=== PATIENT | female | born 1985 | race Caucasian/White ===

== ENCOUNTER 2017-05-07 08:05 | Inpatient (IN) | payer BC ==
[2017-05-07] MEDS ORDERED: Acetaminophen TAB* 325 MG PO ONE (09:20)
[2017-05-07] MEDS ORDERED: Misoprostol TAB* 200 MCG ONE ×2 (09:26→12:35)
[2017-05-07] MEDS ORDERED: Acetaminophen TAB* 325 MG ONE (09:26)
[2017-05-07] MEDS: Misoprostol TAB* 100 MCG VAGINAL ONE (09:30)
--- NOTE | 2017-05-07 10:12 | HP ---
General Information - General Information Maternal Age: 31 Grav: 1 Para: 0 SAB: 0 IEA: 0 Estimated Due Date: 08/25/17 Determined By: LMP Gestational Age in Weeks and Days: 24 Weeks and 2 Days Maternal Blood Type and Rh: O Negative - Results this Serology/RPR Result: Non-Reactive Rubella Result: Immune HBsAg Result: Negative HIV Result: Negative GBS Culture Result: Positive Past Medical History Pertinent Past Medical History: Non-Contributory Past Medical History Comment: congenital osteochondroma, L hip Pertinent Past Surgical History: None Pertinent Family History: Non-Contributory - Antepartal Records Antepartal Records: Reviewed, Complicated by: - GBS bacteriuria. IUFD at 24 weeks Review of Systems Constitutional: Comfortable CV Complaint: No Respiratory: Shortness of Breath: No - current URI Gastrointestinal: No Nausea/Vomiting, Normal Bowel Movement Genitourinary: No Leaking Fluid Musculoskeletal: No Complaint Movement: Absent - Comments current mild headache Exam Allergies/Adverse Reactions: Allergies Sulfa (Sulfonamide Antibiotics) Allergy (Verified 05/07/17 09:34) Hives - Measurements Height: 5 ft 8 in Weight: 180 lb Weight in lbs: 180 Body Mass Index (BMI): 27.3 Pre- Weight: 164 lb Weight Gained This : 16 lbs and 0 ozs - Exam CVA: No CVA Tenderness Extremities: No Edema Heart: Normal Rhythm/Heart Sounds HEENT: No Significant Findings Lungs: Clear Bilaterally Reflexes: DTR 2+ Thyroid: No Thyromegaly Other Exam Findings: breasts: soft, no masses - Cervical Exam thick, closed - Abdominal Exam Abdomen Exam: Non-Tender, Fundal Height Consistent with Dates - Membranes Membrane Status: Intact - Ultrasound/Biophysical Profile Ultrasound Status: Not Done EFM Findings - External Monitor Findings Contractions: None Assessment/Plan - Reason for Visit Reason for Visit: IUFD at 24 wks, for misoprostol induction - Obstetrical Risk Factors Obstetrical Risk Factors: Demise - Plan Plan: Induction Plan Comment: discussed plan of care with pt/. Will do vaginal misoprostol--initial dose 200mcg placed at 930 Epidural recommended in case manual removal of placenta necessary demise panel drawn Desires genetic studies Autopsy discussed, they are considering Dr. Hemphill advised of status - Date/Time of Admission Date of Admission: 05/07/17 Time of Admission: 09:20
[2017-05-07 11:14] LABS: Hematocrit 37 % (35-47); Hemoglobin 12.8 g/dl (12.0-16.0); Mean Corpuscular HGB Conc 35 g/dl (31-36); Mean Corpuscular Hemoglobin 32 pg (27-31); Mean Corpuscular Volume 91 fL (80-97); Mean Platelet Volume 7 um3 (7.4-10.4); Platelet Count 231 10^3/ul (150-450); Red Blood Count 4.07 10^6/ul (4.0-5.4); Red Cell Distribution Width 13 % (10.5-15)
[2017-05-07 11:27] LABS: Platelet Count 200 10^3/ul (150-450)
[2017-05-07 11:48] LABS: INR 0.86 (0.77-1.02)
[2017-05-07 11:52] LABS: EGFR Non-African American 103.8 (>60)
[2017-05-07 12:11] LABS: Schistocytes ABSENT
[2017-05-07 12:11] LABS: ABS Basophils 0 10^3/ul (0-0.2); ABS Eosinophils 0.1 10^3/ul (0-0.6); ABS Lymphocytes 1.5 10^3/ul (1.0-4.8); ABS Monocytes 0.4 10^3/ul (0-0.8); ABS Nucleated RBC 0 10^3/ul; Eosinophil % 0.6 % (0-6); Lymphocyte % 13.3 % (25-47); Nucleated Red Blood Cells % 0
[2017-05-07] MEDS ORDERED: Misoprostol TAB* 200 MCG VAGINAL ONE ×2 (12:31→15:41)
[2017-05-07] MEDS ORDERED: Ibuprofen TAB* 600 MG PO PRN (13:40)
[2017-05-07] MEDS: Acetaminophen TAB* 325 MG PO PRN (14:04)
[2017-05-08] MEDS ORDERED: Misoprostol TAB* 200 MCG VAGINAL ONE ×3 (01:10→13:31)
[2017-05-08] MEDS ORDERED: Misoprostol TAB* 200 MCG ONE (01:19)
[2017-05-08] MEDS: Misoprostol TAB* 100 MCG VAGINAL ONE (13:40)
[2017-05-08] MEDS ORDERED: Nalbuphine* 20 MG/ML 1 ML VIAL IV PRN (16:43)
[2017-05-08] MEDS ORDERED: Promethazine INJ(RESTRICTED)* 25 MG/ML 1 ML VIAL IV PRN (16:44)
[2017-05-08] MEDS: Oxytocin in LR* 20 UNITS/1,000 ML BAG IVPB SCH (18:00)
[2017-05-08] MEDS ORDERED: Ondansetron INJ* 2 MG/ML VIAL ONE (22:04)
[2017-05-08] MEDS: Acetaminophen TAB* 325 MG PO PRN (23:17)
[2017-05-09] MEDS: Oxytocin in LR* 20 UNITS/1,000 ML BAG IVPB SCH (03:25)
[2017-05-09] MEDS ORDERED: Nalbuphine* 20 MG/ML 1 ML VIAL IV PRN (04:10)
[2017-05-09] MEDS ORDERED: Promethazine INJ(RESTRICTED)* 25 MG/ML 1 ML VIAL IV PRN (04:12)
[2017-05-09] MEDS ORDERED: Promethazine INJ(RESTRICTED)* 25 MG/ML 1 ML VIAL ONE (04:13)
[2017-05-09] MEDS ORDERED: Witch Hazel PAD* JAR TOPICAL PRN (06:59)
[2017-05-09] MEDS ORDERED: Acetaminophen TAB* 325 MG PO PRN (06:59)
[2017-05-09] MEDS ORDERED: RHO D Immune Globulin (HUMAN)* 300 MCG = 1,500 I.U. INJ IM ONE (06:59)
[2017-05-09] MEDS ORDERED: Ibuprofen TAB* 600 MG PO PRN (06:59)
[2017-05-09] MEDS ORDERED: fentaNYL* 50 MCG/ML 2 ML VIAL (100 MCG VIAL) ONE (09:02)
[2017-05-09] MEDS ORDERED: Midazolam* 1 MG/ML 10 ML VIAL (10 MG) ONE (09:03)
[2017-05-09] MEDS ORDERED: ceFAZolin 2 GM PREMIX (*) 2 GM/50 ML BAG IVPB ONE ×2 (09:04→09:07)
[2017-05-09] MEDS ORDERED: Naloxone* 0.4 MG/ML 1 ML VIAL IV PRN (10:12)
[2017-05-09] MEDS ORDERED: Ondansetron INJ* 2 MG/ML VIAL IV PRN (10:12)
[2017-05-09] MEDS ORDERED: fentaNYL* 50 MCG/ML 2 ML VIAL (100 MCG VIAL) IV PRN (10:12)
[2017-05-09] MEDS: Docusate CAP* 100 MG PO SCH (14:38)
[2017-05-09 16:23] VITALS: BP 109/67
[2017-05-10] MEDS ORDERED: Ferrous Gluconate TAB* 324 MG TAB PO SCH (09:00)
--- NOTE | 2017-05-10 17:16 | OP ---
DATE OF OPERATION: 05/09/17 - ROOM #113 DATE OF : 83 SURGEON: Nestor Meier MD ANESTHESIOLOGIST: Dr. Montero. ANESTHESIA: Spinal. PRE-OP DIAGNOSIS: Retained placenta after 24-week vaginal delivery of demise. POST-OP DIAGNOSIS: Retained placenta after 24-week vaginal delivery of demise. OPERATIVE PROCEDURE: Manual extraction of placenta with ultrasound. MATERIALS TO LAB: Placenta for pathology and chromosomal analysis. ESTIMATED BLOOD LOSS: 150 cc. URINE OUTPUT: 200 cc. IV FLUIDS: 900 cc lactated Ringer's. INDICATIONS: This patient is a 31-year-old 1, diagnosed with a 24-week intrauterine demise earlier this week. The cause of the is currently unknown. The patient started induction of labor on Saturday, and on morning at about 5:30 a.m., she had vaginal delivery of the fetus. The placenta did not deliver rapidly and, due to the thin fragile cord, the placenta was allowed to stay in place to try to deliver spontaneously. After a couple of hours, the placenta still had not delivered, so IV Pitocin was added. In combination with some gentle traction, the placenta was brought down into the dilated cervix, but at that point the cord avulsed and the patient could not tolerate further manipulation of the placenta. Fortunately, the patient was not having significant bleeding at that point. She was then counseled for a manual extraction of the placenta with spinal analgesia. The patient agreed and consent was signed. FINDINGS: The patient was brought to the operating room and the majority of the placenta was already in the lower uterus and vagina. Once this was removed , there was still a moderate amount of retained placenta inside the cavity of the uterus, which was removed manually. Ultrasound was performed in the operating room and confirmed that the uterine cavity was then emptied. COMPLICATIONS: None. DESCRIPTION OF PROCEDURE: The risks, benefits, and alternatives were described to the patient and informed consent was obtained. The patient was taken to the operating room with IV running where spinal anesthesia was induced and found to be adequate. The patient was prepped and draped in the normal sterile fashion in the high lithotomy position and Alpesh stirrups. A time-out was performed. The placenta was easily palpable in the patient's vagina and lower uterus. The placenta was grasped and with gentle traction, the placenta membranes delivered without difficulty. At that time, the uterine cavity was well palpated and several pieces of placenta were noted to be adherent on the anterior aspect of the uterine cavity. With 2 to 3 passes, these were able to be removed with digital manipulation and extraction. Once the uterine was felt to be smooth, an abdominal ultrasound was performed in the operating room and the uterine cavity appeared to be completely empty. Of note, a Costello catheter was placed during the procedure. At that time, the bleeding was minimal and there was no visible trauma to the perineum or vagina. The patient was returned to the supine position and the procedure was completed. The patient tolerated the procedure well. Sponge, lap , and needle counts were correct x2. [id number]/[facility] #: [id number] MTDD
== END 2017-05-09 20:30 | disposition home or self-care (01) | DRG 541 ==
LOC: MCHOBOUT 08:05 → MCHOB 09:23
PROVIDERS: ADMIT Midwife; ATTEND Obstetrics & Gynecology
PROC: 10E0XZZ Delivery of Products of Conception, External Approach (ICD-10-PCS; 2017-05-09)
PROC: 4A1HXCZ Monitoring of Products of Conception, Cardiac Rate, External Approach (ICD-10-PCS; 2017-05-09)
PROC: 0U7C7ZZ Dilation of Cervix, Via Natural or Artificial Opening (ICD-10-PCS; 2017-05-09)
PROC: 10D17Z9 Manual Extraction of Products of Conception, Retained, Via Natural or Artificial Opening (ICD-10-PCS; 2017-05-09)
PROC: 3E0P7VZ Introduction of Hormone into Female Reproductive, Via Natural or Artificial Opening (ICD-10-PCS; principal; 2017-05-09 09:22)
DX: O36.4XX0 Maternal care for intrauterine death, not applicable or unspecified (principal); Z37.1 Single stillbirth; O73.0 Retained placenta without hemorrhage; Z3A.24 24 weeks gestation of pregnancy; Z88.2 Allergy status to sulfonamides; Z88.0 Allergy status to penicillin; O99.824 Streptococcus B carrier state complicating childbirth
CPT/HCPCS: 36415; 80048; 80307; 83030; 85025; 85049; 85362; 85384; 85610; 85613; 85730; 86038; 86200; 86644; 86695; 86696; 86747; 86762; 86777; 86778; 86850; 86900; 86901; 87070; 87073; 87076; 87077; 87184; 87185; 87186; 87205; 87640; 87641; 88233; 88291; 88305; A9270-GY; J0690; J2250; J2300; J2405; J2550; J2790; J3010; S0191

== ENCOUNTER 2018-05-03 20:00 | Inpatient (IN) | payer BC ==
[2018-05-03] MEDS ORDERED: Buffered Lidocaine 1% SYRIN* 1 ML/SYRINGE INTRADERM ONE (21:29)
[2018-05-03] MEDS ORDERED: Lactated Ringers 1000 ML Bag* 1,000 ML IV ONE (21:29)
--- NOTE | 2018-05-03 21:29 | HP ---
General Information - Reason for Visit Cervical ripening - General Information Maternal Age: 32 Grav: 2 Para: 1 SAB: 0 IEA: 0 Estimated Due Date: 05/11/18 Determined By: LMP Maternal Blood Type and Rh: O Negative - Results this Serology/RPR Result: Non-Reactive Rubella Result: Immune HBsAg Result: Negative HIV Result: Negative GBS Culture Result: Positive Past Medical History Delivery History: See Records Pertinent Past Medical History: See Records Pertinent Past Surgical History: See Records Pertinent Family History: See Records - Antepartal Records Antepartal Records: Reviewed, Complicated by: - 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 Review of Systems Constitutional: Comfortable CV Complaint: No Respiratory: Shortness of Breath: No Gastrointestinal: No Nausea/Vomiting Genitourinary: No Dysuria, No Bleeding, No Leaking Fluid Musculoskeletal: No Complaint Neurological: No Headache Movement: Normal Exam Allergies/Adverse Reactions: Allergies Penicillins Allergy (Verified 05/03/18 20:42) Rash Sulfa (Sulfonamide Antibiotics) Allergy (Verified 05/03/18 20:42) Hives T;98.8 BP: 125/90 RR: 16 P 81 - Measurements Height: 5 ft 8 in Weight: 200 lb Weight in lbs: [id number] Body Mass Index (BMI): 30.4 Pre- Weight: 164 lb Weight Gained This : 36 lbs and 0 ozs - Exam Breast: Breast Exam Deferred CVA: No CVA Tenderness Extremities: No Edema Heart: Normal Rhythm/Heart Sounds HEENT: No Significant Findings Lungs: Clear Bilaterally - Abdominal Exam Abdomen Exam: Non-Tender - Ultrasound/Biophysical Profile Ultrasound Status: Not Done Targeted Exam Findings Cervical Exam: 2cm Effacement: Thick Station: -2 Presenting Part: Vertex Membrane Status: Intact EFM Findings - External Monitor Findings Baseline Heart Rate: 140 External Monitor Findings: Accelerations Present, No Pattern of Variable or Late Decelerations, Variability Moderate Contractions: None Assessment/Plan - Assessment Pt 32 at 38 6/7 weeks for cervical ripening and plan on induction at 39 0/7 weeks. 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 - Obstetrical Risk Factors Obstetrical Risk Factors: GBS Positive - Plan Plan: Cervical Ripening - plan on indcuiton after cervical ripening. Pt GBS positive and will treat with cephalosporins for prophylaxsis.
[2018-05-03] MEDS ORDERED: Lactated Ringers 1000 ML Bag* 1,000 ML IV SCH (22:00)
[2018-05-03] MEDS ORDERED: Dinoprostone* 10 MG VAG.SUPP VAGINAL ONE (22:30)
[2018-05-03] MEDS ORDERED: Heparin VIAL(*) 5000 UNITS/ML VIAL (FIVE THOUSAND) SUBCUT ONE (23:51)
[2018-05-04] MEDS ORDERED: ceFAZolin VIAL(*) 1 GM in NS 0.9% 50 ML* 50 ML IVPB SCH (03:00)
[2018-05-04] MEDS ORDERED: Dinoprostone* 10 MG VAG.SUPP VAGINAL ONE (11:50)
[2018-05-04] MEDS: ceFAZolin 1 GM in Dextrose (*) 1 GM/50 ML BAG IVPB SCH ×2 (12:50→13:31)
[2018-05-04 13:19] LABS: Hematocrit 36 % (33-41); Mean Corpuscular HGB Conc 34 g/dL (31-36); Mean Corpuscular Hemoglobin 31 pg (27-31); Mean Corpuscular Volume 90 fL (80-97); Mean Platelet Volume 7.7 fL (7.4-10.4); Platelet Count 199 10^3/uL (150-450); Red Blood Count 3.93 10^6 /uL (3.70-4.87); Red Cell Distribution Width 14 % (10.5-15); White Blood Count 12.9 10^3/uL (3.5-10.8)
[2018-05-04 13:28] LABS: Activated Partial Thrombo Time 25.1 seconds (26.0-36.3); EGFR African American 107.7 (>60); INR 0.88 (0.77-1.02)
[2018-05-04 13:44] LABS: ABS Basophils 0 10^3/ul (0-0.2); ABS Eosinophils 0.1 10^3/ul (0-0.6); ABS Lymphocytes 1.8 10^3/ul (1.0-4.8); ABS Monocytes 0.8 10^3/ul (0-0.8); ABS Neutrophils 10.1 10^3/ul (1.5-7.7); ABS Nucleated RBC 0 10^3/ul; Eosinophil % 0.8 %; Lymphocyte % 14.3 %; Nucleated Red Blood Cells % 0
[2018-05-04] MEDS ORDERED: ceFAZolin 1 GM in Dextrose (*) 1 GM/50 ML BAG IVPB SCH (21:00)
[2018-05-05] MEDS ORDERED: Oxytocin in LR* 20 UNITS/1,000 ML BAG IVPB SCH ×2 (01:00→22:00)
[2018-05-05] MEDS: ceFAZolin 1 GM in Dextrose (*) 1 GM/50 ML BAG IVPB SCH ×2 (05:02→12:58)
[2018-05-05] MEDS ORDERED: OBEPIDURAL* 250 ML EPIDURAL ONE (14:49)
[2018-05-05] MEDS ORDERED: Sodium Citrate/Citric Acid* 15 ML UDC PO PRN (15:34)
[2018-05-05] MEDS ORDERED: Famotidine TAB* 20 MG PO PRN (15:34)
[2018-05-05] MEDS ORDERED: Phenylephrine 40 MCG/ML SYRINGE IV PUSH PRN (15:34)
[2018-05-05] MEDS ORDERED: Lactated Ringers 1000 ML Bag* 1,000 ML IV ONE (15:34)
[2018-05-05] MEDS ORDERED: OBEPIDURAL* 250 ML EPIDURAL SCH (16:00)
[2018-05-05] MEDS ORDERED: Lactated Ringers 1000 ML Bag* 1,000 ML IV SCH ×2 (16:00→22:00)
[2018-05-05] MEDS ORDERED: Ferrous Gluconate TAB* 324 MG TAB PO SCH (21:00)
[2018-05-05] MEDS ORDERED: fentaNYL* 50 MCG/ML 2 ML VIAL (100 MCG VIAL) ONE (21:05)
[2018-05-05] MEDS ORDERED: KETAMINE HCL* 50 MG/ML 10 ML VIAL ONE (21:06)
[2018-05-05] MEDS ORDERED: Midazolam* 1 MG/ML 5 ML VIAL (5 MG) ONE (21:06)
[2018-05-05] MEDS ORDERED: Morphine PF AMP (0.5MG/ML)* 5 MG/10 ML AMP ONE (21:06)
[2018-05-05] MEDS ORDERED: Acetaminophen TAB* 325 MG PO PRN (21:11)
[2018-05-05] MEDS ORDERED: Ibuprofen TAB* 600 MG PO PRN (21:11)
[2018-05-05] MEDS ORDERED: Glycerin ADULT SUPP PR PRN (21:11)
[2018-05-05] MEDS ORDERED: RHO D Immune Globulin (HUMAN)* 300 MCG = 1,500 I.U. INJ IM ONE (21:11)
[2018-05-05] MEDS ORDERED: Dibucaine 1% 28.35 GM TUBE PR PRN (21:11)
[2018-05-05] MEDS ORDERED: Witch Hazel PAD* JAR TOPICAL PRN (21:11)
[2018-05-05] MEDS ORDERED: ceFOXitin 2 GM IVPREMIX* 2 GM/50 ML BAG ONE (21:27)
[2018-05-05] MEDS ORDERED: Heparin VIAL(*) 5000 UNITS/ML VIAL (FIVE THOUSAND) SUBCUT SCH (22:00)
[2018-05-05] MEDS ORDERED: Nalbuphine* 10 MG/ML 1 ML VIAL IV PRN (22:02)
[2018-05-05] MEDS ORDERED: Ondansetron INJ* 2 MG/ML VIAL IV PRN (22:02)
[2018-05-05] MEDS ORDERED: DiMENhydriNATE IV* 50 MG/ML VIAL IV PUSH PRN (22:02)
[2018-05-05] MEDS ORDERED: Ketorolac INJ* 30 MG/ML 1 ML VIAL IV PRN (22:02)
[2018-05-05] MEDS ORDERED: Naloxone* 0.4 MG/ML 1 ML VIAL IV PRN ×2 (22:02→22:05)
[2018-05-05] MEDS ORDERED: Naloxone* 2 MG in NS 0.9% 250 ML* 250 ML IV PRN (22:02)
[2018-05-05] MEDS ORDERED: PROCHLORPERAZINE INJ 5 MG/ML 2 ML VIAL IV PRN (22:02)
[2018-05-05] MEDS ORDERED: Scopolamine 1.5 mg* PATCH TRANSDERM PRN (22:02)
[2018-05-05] MEDS ORDERED: oxyCODONE/Acetamin 5/325 MG* TAB PO PRN (22:02)
[2018-05-05] MEDS ORDERED: Scopolamine 1.5 mg* PATCH ONE (22:30)
[2018-05-05] MEDS ORDERED: Lidocaine 2% EPI 1:200000 MPF*10-20 ML VIAL ONE (22:30)
[2018-05-05] MEDS ORDERED: Lidocaine 2% PF* 10 ML AMP ONE (22:30)
[2018-05-05] MEDS ORDERED: Ketorolac INJ* 30 MG/ML 1 ML VIAL ONE (22:31)
[2018-05-05] MEDS ORDERED: Phenylephrine 40 MCG/ML SYRINGE ONE (22:31)
[2018-05-05] MEDS ORDERED: EPHEDrine (Pressors)* 50 MG/ML VIAL ONE (22:31)
[2018-05-05] MEDS ORDERED: Phenylephrine 10 MG/ML VIAL* 1 ML VIAL ONE (22:31)
[2018-05-05] MEDS ORDERED: Ondansetron INJ* 2 MG/ML VIAL ONE (22:31)
[2018-05-05] MEDS ORDERED: Dexamethasone IV* 4 MG/ML 1 ML (4 MG) ONE (22:31)
--- NOTE | 2018-05-06 00:13 | OP ---
DATE OF OPERATION: 05/05/18 - ROOM #103 DATE OF : 83 SURGEON: Enedelia Sabillon MD. CELL OPERATION SUPERVISOR: Dr. Meier. PRE-OP DIAGNOSES: Intrauterine 39 and 1/7 weeks, arrest disorder, and antiphospholipid antibody syndrome. POST-OP DIAGNOSES: Intrauterine 39 and 1/7 weeks, arrest disorder, and antiphospholipid antibody syndrome. Delivered. OPERATIVE PROCEDURE: Primary low-transverse section. ESTIMATED BLOOD LOSS: 800 cc. URINE OUTPUT: 100 cc of clear yellow urine. FLUIDS: 1800 cc of crystalloid. FINDINGS: Revealed a vertex male infant with Apgars 9 at 1 minute and 9 at 5 minutes. Weight 7 pounds 15 ounces. No nuchal cord. No meconium. Placenta manually extracted. 3-vessel cord intact. Uterine cavity explored, noted to be free of any membranes or placental tissue. Normal-appearing tubes and ovaries bilaterally. Small left paratubal cyst sent for pathology. COMPLICATIONS: None apparent. DISPOSITION: Stable to recovery room. DESCRIPTION OF PROCEDURE: The patient was placed in dorsal lithotomy position. The abdomen was prepped and draped in sterile standard fashion. The patient was identified with universal protocol for correct procedure, position, and patient. After testing for appropriate level of anesthesia, incision was made 2 fingerbreadths above the pubic symphysis with a scalpel. This was carried down through to the fascia. Fascia was scored in the midline with a scalpel, and the incision was extended laterally and superiorly using curved Cowan scissors. Rectus was sharply and bluntly from the rectus muscle with blunt and sharp dissection. Linea alba was incised with Cowan scissors. The peritoneum was then entered bluntly. The peritoneal incision was extended bluntly. Bladder blade was inserted. Lower uterine segment was identified, tented up with an Allis. An incision was made with a scalpel. This was carried down through to membranes. Fluid was noted to be clear. The incision was extended laterally and superiorly using bandage scissors. The was found to be ROT. Head was delivered, anterior posterior shoulder delivered. Cord was allowed to pulse for a minute. Baby was crying and vigorous in the operative field. Cord was clamped and then cut and then infant was handed off to waiting mink farmer, Dr. Garrison. Appropriate cord blood was obtained. Placenta was then manually delivered and extracted. The uterus was exteriorized. The uterine cavity was explored and noted to be free of any placental tissue or membranes. The uterus was wrapped in warm moist laparotomy sponge. The hysterotomy site was clamped with broad Allis, and the incision was then reapproximated using 0 Vicryl running locked first layer and running imbricated 0 Vicryl second layer. Hemostasis was noted. There was a small paratubal cyst on the left, clamped with Corinne and excised with Metzenbaum and Bovie coagulated to base. Noted to be hemostatic. The uterus was returned intraabdominally. Colic gutters were lavaged. Hemostasis was assured at the hysterotomy site. The peritoneum was then clamped with Corinne and the peritoneum was then reapproximated using 3-0 Vicryl in a running fashion. Subfacial area was lavaged. Hemostasis assured with Bovie coagulation and the fascia was then reapproximated using 0 Vicryl x2 in a running fashion. Subcu was lavaged, hemostasis assured, and subcuticular fat stitch was placed using 3- 0 Vicryl in an interrupted fashion. The skin was then reapproximated using 4-0 Monocryl in a subcuticular fashion. Mastisol and Steri-Strips were applied. All sponge, instrument, and blade counts were correct throughout the case. The patient tolerated the procedure well and went to recovery room in stable condition. [id number]/[facility] #: [id number] ALICIA
[2018-05-06] MEDS ORDERED: Phenylephrine 40 MCG/ML SYRINGE ONE (06:57)
[2018-05-06] MEDS ORDERED: Heparin VIAL(*) 5000 UNITS/ML VIAL (FIVE THOUSAND) SUBCUT SCH (08:00)
[2018-05-06 08:28] LABS: Hematocrit 30 % (33-41); Hemoglobin 10.1 g/dL (12.0-16.0); Mean Corpuscular HGB Conc 34 g/dL (31-36); Mean Corpuscular Hemoglobin 31 pg (27-31); Mean Corpuscular Volume 91 fL (80-97); Mean Platelet Volume 7.8 fL (7.4-10.4); Platelet Count 195 10^3/uL (150-450); Red Blood Count 3.29 10^6 /uL (3.70-4.87); Red Cell Distribution Width 14 % (10.5-15)
[2018-05-06] MEDS: Simethicone TAB* 80 MG TAB.CHEW PO SCH ×4 (08:44→21:09)
[2018-05-06] MEDS: Docusate CAP* 100 MG PO SCH ×3 (08:44→21:08)
[2018-05-06] MEDS: Prenatal Vitamin TAB PO SCH (08:44)
[2018-05-06 09:27] LABS: ABS Basophils 0 10^3/ul (0-0.2); ABS Eosinophils 0 10^3/ul (0-0.6); ABS Monocytes 0.8 10^3/ul (0-0.8); ABS Neutrophils 21.2 10^3/ul (1.5-7.7); ABS Nucleated RBC 0 10^3/ul; Eosinophil % 0 %; Lymphocyte % 4.4 %; Nucleated Red Blood Cells % 0
[2018-05-06] MEDS ORDERED: oxyCODONE/Acetamin 5/325 MG* TAB PO PRN (14:00)
[2018-05-06] MEDS: Ibuprofen TAB* 600 MG PO PRN ×2 (14:45→21:08)
[2018-05-06] MEDS: Heparin VIAL(*) 5000 UNITS/ML VIAL (FIVE THOUSAND) SUBCUT SCH (21:07)
[2018-05-07] MEDS: Ibuprofen TAB* 600 MG PO PRN ×2 (05:45→12:00)
[2018-05-07] MEDS: Acetaminophen TAB* 325 MG PO PRN ×3 (05:45→14:45)
[2018-05-07] MEDS: Heparin VIAL(*) 5000 UNITS/ML VIAL (FIVE THOUSAND) SUBCUT SCH (09:02)
[2018-05-07] MEDS: Prenatal Vitamin TAB PO SCH (09:02)
[2018-05-07] MEDS: Docusate CAP* 100 MG PO SCH ×3 (09:02→21:06)
[2018-05-07] MEDS: Simethicone TAB* 80 MG TAB.CHEW PO SCH ×4 (09:02→21:06)
[2018-05-07] MEDS ORDERED: Enoxaparin(*) 40 MG/0.4 ML SYR SUBCUT SCH ×2 (12:00→21:00)
[2018-05-07] MEDS: oxyCODONE/Acetamin 5/325 MG* TAB PO PRN ×3 (18:28→23:04)
[2018-05-07 20:08] VITALS: BP 131/73
[2018-05-08] MEDS: Ibuprofen TAB* 600 MG PO PRN ×2 (01:07→08:33)
[2018-05-08] MEDS: oxyCODONE/Acetamin 5/325 MG* TAB PO PRN ×2 (04:03→08:33)
[2018-05-08] MEDS: Prenatal Vitamin TAB PO SCH (08:33)
[2018-05-08] MEDS: Simethicone TAB* 80 MG TAB.CHEW PO SCH (08:34)
[2018-05-08] MEDS: Docusate CAP* 100 MG PO SCH (08:34)
--- NOTE | 2018-05-08 08:53 | PTEDU ---
Patient Name: LEELA YODER LEELA YODER selected video: Follow Me Mum: [employer] to view on 2018 at 8:52:49 AM from [id number]
[2018-05-08] MEDS: Acetaminophen TAB* 325 MG PO PRN (12:55)
[2018-05-08] MEDS ORDERED: Scopolamine PATCH Remove* 1 NOTE MISC PATCH OFF ONE (22:03)
== END 2018-05-08 14:19 | disposition home or self-care (01) | DRG 540 ==
LOC: MCHOBOUT 20:00 → MCHOB 21:43
PROVIDERS: ADMIT Obstetrics & Gynecology; ATTEND Obstetrics & Gynecology
PROC: 3E0P7VZ Introduction of Hormone into Female Reproductive, Via Natural or Artificial Opening (ICD-10-PCS; principal; 2018-05-03)
PROC: 4A1HXCZ Monitoring of Products of Conception, Cardiac Rate, External Approach (ICD-10-PCS; 2018-05-03)
PROC: 10D00Z1 Extraction of Products of Conception, Low, Open Approach (ICD-10-PCS; 2018-05-05)
DX: O99.12 Other diseases of the blood and blood-forming organs and certain disorders involving the immune mechanism complicating childbirth (principal); D68.61 Antiphospholipid syndrome; O99.824 Streptococcus B carrier state complicating childbirth; O62.1 Secondary uterine inertia; O34.83 Maternal care for other abnormalities of pelvic organs, third trimester; N83.202 Unspecified ovarian cyst, left side; Z3A.39 39 weeks gestation of pregnancy; Z37.0 Single live birth; Z88.0 Allergy status to penicillin; Z88.2 Allergy status to sulfonamides; Z67.41 Type O blood, Rh negative
CPT/HCPCS: 36415; 59200; 82565; 84520; 85025; 85610; 85730; 86850; 86870; 86880; 86900; 86901; 88304; A9270-GY; J0690; J0694; J1100; J1644; J1650; J1885; J2001; J2250; J2405; J3010

== ENCOUNTER 2018-12-12 13:33 | Emergency (ER) | payer BC ==
[2018-12-12 14:55] VITALS: BP 112/71
--- NOTE | 2018-12-12 15:29 | UC ---
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 She denies any numbness or tingling in her extremities and denies any saddle anesthesia. - History of Current Complaint Chief Complaint: UCBackPain Stated Complaint: BACK PAIN Time Seen by Provider: 12/12/18 15:15 Hx Obtained From: Patient Hx Last Menstrual Period: 11/22/18 ?: No Onset/Duration: Sudden Onset Timing: Intermittent Severity Initially: Mild Severity Currently: Mild Pain Intensity: 1 Character: Dull, Aching Aggravating Factor(s): Movement, Lifting, Bending Alleviating Factor(s): Rest Associated Signs And Symptoms: Positive: Negative. Negative: Weakness, Numbness , Tingling, Abdominal Pain, Flank Pain, Bladder Incontinence, Bowel Incontinence , Pain with Weight Bearing - Allergies/Home Medications Allergies/Adverse Reactions: Allergies Allergy/AdvReac Type Severity Reaction Status Date / Time Penicillins Allergy Rash Verified 12/12/18 14:55 Sulfa (Sulfonamide Allergy Hives Verified 12/12/18 14:55 Antibiotics) Home Medications: Home Medications Ibuprofen TAB* [Motrin TAB* 800 MG] 800 mg PO Q6HR 12/12/18 [History Confirmed 12/12/18] PMH/Surg Hx/FS Hx/Imm Hx Previously Healthy: Yes - Surgical History Surgical History: None Surgery Procedure, Year, and Place: c section - Family History Known Family History: Positive: Non-Contributory - Social History Alcohol Use: Occasionally Alcohol Amount: stopped with Substance Use Type: None Smoking Status (MU): Never Smoked Tobacco - Immunization History Most Recent Influenza Vaccination: continues to decline at this time Most Recent Pneumonia Vaccination: none Review of Systems All Other Systems Reviewed And Are Negative: Yes Musculoskeletal: Positive: Other: - Mild pain lower back strain mostly with moving. Is Patient Immunocompromised?: No Physical Exam Triage Information Reviewed: Yes Appearance: Well-Appearing, No Pain Distress, Well-Nourished Vital Signs: Initial Vital Signs Temp 97.5 F 12/12/18 14:49 Pulse 68 12/12/18 14:49 Resp 16 12/12/18 14:49 BP 112/71 12/12/18 14:49 Pulse Ox 100 12/12/18 14:49 Vital Signs Reviewed: Yes Respiratory: Positive: Lungs clear, Normal breath sounds, No respiratory distress, No accessory muscle use Cardiovascular: Positive: RRR, No Murmur, Pulses Normal, Brisk Capillary Refill Abdomen Description: Positive: Nontender, No Organomegaly, Soft. Negative: CVA Tenderness (R), CVA Tenderness (L), Distended, Guarding, Hepatomegaly, Splenomegaly Bowel Sounds: Positive: Present Musculoskeletal: Positive: Strength Intact, ROM Intact, No Edema, Other: - Very minimal pain on palpation to the right left paraspinal muscle area. No bruising. Negative straight leg raise. The peripheral pulses neuro sensation and capillary refill. Full range of motion. Ambulates without difficulty. Good leg Strength against resistance Neurological: Positive: Alert, Muscle Tone Normal Psychological: Positive: Normal Response To Family Skin Exam: Normal Back Pain Course/Dx - Course Course Of Treatment: The patient refused a muscle relaxant. She is going to take today and the weekend off and apply ice or heat to the area which ever feels good. She can take Tylenol for pain. She is to follow-up with her primary care provider if no improvement in 3 or 4 days. She states she is off work from [employer] until of next week. - Differential Dx/Diagnosis Provider Diagnosis: Low back strain Discharge ED - Sign-Out/Discharge Documenting (check all that apply): Patient Departure All imaging exams completed and their final reports reviewed: No Studies - Discharge Plan Condition: Good Disposition: HOME Patient Education Materials: Low Back Strain (ED) Forms: *Work Release Referrals: [facility] [Outside] No Primary Care Phys,NOPCP [Primary Care Provider] - Additional Instructions: May apply heat or ice to the sore area. Continue your pain medications as directed. Avoid movements that cause pain. Avoid lifting, twisting, pushing, pulling, bending. Follow-up with your primary care provider or [facility] next week if no improvement. - Billing Disposition and Condition Condition: GOOD Disposition: Home - Attestation Statements Provider Attestation: Per institutional requirements, I have reviewed the chart, however, I was not consulted specifically or made aware of this patient by the midlevel provider. I did not personally evaluate, interact with , or disposition this patient.
== END 2018-12-12 15:34 | disposition home or self-care (01) ==
LOC: UCEAST 13:33
DX: S39.012A Strain of muscle, fascia and tendon of lower back, initial encounter (principal); Z88.0 Allergy status to penicillin; Z88.2 Allergy status to sulfonamides; X58.XXXA Exposure to other specified factors, initial encounter; Y92.9 Unspecified place or not applicable
CPT/HCPCS: 99211; G0463

== ENCOUNTER 2023-02-27 07:45 | Inpatient (IN) ==
[2023-02-28] MEDS ORDERED: Buffered Lidocaine 1% SYRIN 1 ml INTRADERM ONE (14:05)
[2023-02-28] MEDS ORDERED: Naloxone 0.4 mg VIAL 0.4 mg/ml 1 ml VIAL IV PUSH PRN (14:05)
[2023-02-28] MEDS ORDERED: Sodium Citrate/Citric Acid LIQ 15 ML UDC PO ONE (14:05)
[2023-02-28] MEDS ORDERED: Ondansetron 4 mg VIAL 2 MG/ML 2 ml VIAL IV PRN (14:05)
[2023-02-28] MEDS ORDERED: Acetaminophen IV 1 GM/100ML 1,000 MG/100 ML BAG IV PRN (14:05)
[2023-02-28] MEDS ORDERED: Metoclopramide 5 MG/ML VIAL (10 mg) IV PRN (14:05)
[2023-02-28] MEDS ORDERED: Lactated Ringers 1000 ml BAG 1,000 ML IV SCH (15:00)
[2023-03-01] MEDS ORDERED: ceFOXitin 2 GM IVPREMIX 2 GM/50 ML BAG IVPB ONE (06:15)
[2023-03-01] MEDS ORDERED: Sodium Citrate/Citric Acid LIQ 15 ML UDC PO ONE (06:15)
[2023-03-01] MEDS ORDERED: Lactated Ringers 1000 ml BAG 1,000 ML IV ONE (06:15)
[2023-03-01] MEDS ORDERED: Buffered Lidocaine 1% SYRIN 1 ml INTRADERM ONE (06:15)
[2023-03-01 06:34] LABS: Hematocrit 33.2 % (35-45); Hemoglobin 11.8 g/dL (11.5-14.3); Mean Corpuscular Hemoglobin 31.4 pg (27-33); Mean Corpuscular Hgb Conc 35.5 g/dL (31-36); Mean Corpuscular Volume 88.6 fL (80-97); Mean Platelet Volume 7.5 fL (7.5-11.2); Platelet Count 188 10^3/uL (150-450); Red Blood Count 3.75 10^6/uL (3.63-4.92); Red Cell Distribution Width 13.9 % (12-17); White Blood Count 10.9 10^3/uL (3.8-11.8)
[2023-03-01] MEDS ORDERED: Lactated Ringers 1000 ml BAG 1,000 ML IV SCH ×2 (07:00→08:00)
[2023-03-01] MEDS ORDERED: Witch Hazel PAD JAR TOPICAL PRN (07:33)
[2023-03-01] MEDS ORDERED: Dibucaine 1% OINT 28.35 GM TUBE PR PRN (07:33)
[2023-03-01] MEDS ORDERED: RHO D Immune Globulin (HUMAN) 300 MCG = 1,500 I.U. INJ IM PRN (07:33)
[2023-03-01] MEDS ORDERED: Glycerin ADULT 2.4 gm SUPP PR PRN (07:33)
[2023-03-01] MEDS ORDERED: Oxytocin in LR 20,000 MILLI.UNIT/1,000 ML BAG IV SCH (07:35)
[2023-03-01 07:37] LABS: ABS Basophils 0.1 10^3/uL (0.0-0.1); ABS Eosinophils 0.1 10^3/uL (0.0-0.5); ABS Lymphocytes 2.1 10^3/uL (1.0-4.8); ABS Monocytes 0.6 10^3/uL (0.0-0.9); ABS Neutrophils 8.1 10^3/uL (1.5-7.6); Eosinophil % 0.9 %; Lymphocyte % 19.1 %; RBC Morphology Normal (Normal)
[2023-03-01] MEDS ORDERED: fentaNYL 100 mcg/2 ml 50 MCG/ML VIAL ONE (07:53)
[2023-03-01] MEDS ORDERED: Morphine PF AMP (0.5MG/ML) 5 MG/10 ML AMP ONE (07:53)
[2023-03-01] MEDS ORDERED: Enoxaparin 40 MG/0.4 ML SYR SUBCUT SCH (08:00)
[2023-03-01] MEDS ORDERED: Dexamethasone IV 4 MG/ML VIAL 1 ml VIAL ONE (08:24)
[2023-03-01] MEDS ORDERED: Ondansetron 4 mg VIAL 2 MG/ML 2 ml VIAL ONE (08:24)
[2023-03-01] MEDS ORDERED: Phenylephrine 40 mcg/mL 10mL (400mcg) SYRINGE ONE (08:24)
[2023-03-01] MEDS ORDERED: Oxytocin 10 UNITS/ML 1 ML VIAL ONE (08:48)
[2023-03-01] MEDS ORDERED: Acetaminophen IV 1 GM/100ML 1,000 MG/100 ML BAG IV ONE (08:48)
[2023-03-01] MEDS ORDERED: Ondansetron 4 mg VIAL 2 MG/ML 2 ml VIAL IV PRN (08:57)
[2023-03-01] MEDS ORDERED: Acetaminophen IV 1 GM/100ML 1,000 MG/100 ML BAG IV PRN (08:57)
[2023-03-01] MEDS ORDERED: Metoclopramide 5 MG/ML VIAL (10 mg) IV PRN (08:57)
[2023-03-01] MEDS ORDERED: Naloxone 0.4 mg VIAL 0.4 mg/ml 1 ml VIAL IV PUSH PRN (08:57)
[2023-03-01 10:24] LABS: Urine Appearance Cloudy; Urine Bilirubin Negative (Negative); Urine Blood 1+ (Negative); Urine Color Yellow; Urine Glucose Negative (Negative); Urine Ketones Negative (Negative); Urine Nitrite Negative (Negative); Urine Protein Negative (Negative); Urine Specific Gravity 1.016 (1.002-1.030); Urine Urobilinogen Negative (Negative)
[2023-03-01 10:34] LABS: Urine Benzodiazepine Screen None Detected (None Detect); Urine Cannabinoids Screen None Detected (None Detect); Urine Opiates Screen None Detected (None Detect)
[2023-03-01 10:36] LABS: Urine Bacteria 1+ (Absent); Urine Red Blood Cell 2+(6-10/hpf) (Absent); Urine Squamous Epithelial Cell Present (Absent); Urine White Blood Cell Trace(0-5/hpf) (Absent)
[2023-03-01] MEDS: Enoxaparin 40 MG/0.4 ML SYR SUBCUT SCH (20:33)
[2023-03-02 07:33] LABS: Hematocrit 29.5 % (35-45); Mean Corpuscular Hemoglobin 30.5 pg (27-33); Mean Corpuscular Hgb Conc 33.9 g/dL (31-36); Mean Platelet Volume 7.4 fL (7.5-11.2); Platelet Count 151 10^3/uL (150-450); Red Blood Count 3.28 10^6/uL (3.63-4.92)
[2023-03-02 08:16] LABS: ABS Basophils 0.1 10^3/uL (0.0-0.1); ABS Lymphocytes 2.1 10^3/uL (1.0-4.8); ABS Monocytes 0.8 10^3/uL (0.0-0.9); ABS Neutrophils 10.9 10^3/uL (1.5-7.6); ABS Nucleated RBC 0.01 10^3/ul; Eosinophil % 0.3 %; Lymphocyte % 15.3 %
[2023-03-02] MEDS: Enoxaparin 40 MG/0.4 ML SYR SUBCUT SCH (21:09)
[2023-03-03 07:53] VITALS: BP 111/73
== END 2023-03-03 13:51 | disposition home or self-care (01) | DRG 540 ==
LOC: MCHOB 03-01 05:36
PROVIDERS: ADMIT Obstetrics & Gynecology; ATTEND Obstetrics & Gynecology